=== PATIENT | female | born 1980 | race Hispanic/Latino ===

== ENCOUNTER 2024-09-12 10:26 | Outpatient (CLI) | payer OTHER ==
[2024-09-12 14:22] LABS: Hematocrit 35.7 % (34.9-44.5); Hemoglobin 11.8 g/dL (12.0-15.5); Platelet Count 255 10x3/uL (150-450)
[2024-09-12 15:04] LABS: Hep B Surf Ag Non-Reactive S/CO (NonReactive)
[2024-09-12 15:06] LABS: Syphilis Antibody Index 0.08 S/CO (<1.00 Non-Reactive)
== END 2024-09-12 10:27 | disposition home or self-care (01) ==
LOC: CSHLAB 10:26
PROVIDERS: ATTEND Family Medicine
DX: Z01.812 Encounter for preprocedural laboratory examination (principal); O34.219 Maternal care for unspecified type scar from previous cesarean delivery
CPT/HCPCS: 85014; 85018; 85049; 86780; 86850; 86900; 86901; 87340

== ENCOUNTER 2024-09-13 09:41 | Inpatient (IN) | payer MEDICAID, OTHER, SELFPAY ==
[2024-09-13] MEDS ORDERED: Carboprost 250 MCG/ML AMP IM PRN (09:57)
[2024-09-13] MEDS ORDERED: Diphenoxylate HCl/Atropine Tablet PO PRN (09:57)
[2024-09-13] MEDS ORDERED: Ondansetron PF 4 MG/2 ML Vial IVP PRN ×4 (09:57→12:42)
[2024-09-13] MEDS ORDERED: Tranexamic Acid 1,000 MG/10 ML VIAL IVP PRN (09:57)
[2024-09-13] MEDS ORDERED: Bicitra 30 ML UDCUP PO PRN (09:57)
[2024-09-13] MEDS ORDERED: Methylergonovine 0.2 MG/ML VIAL IM PRN ×2 (09:57→12:40)
[2024-09-13] MEDS ORDERED: Famotidine/PF 20 mg/2ml Vial SLOW IVP PRN (09:57)
[2024-09-13] MEDS ORDERED: hydrALAZINE 20 MG/ML VIAL SLOW IVP PRN ×2 (09:57→12:40)
[2024-09-13] MEDS ORDERED: Azithromycin 500 MG in Sodium Chloride 0.9% 250 ML 250 ML IVPB SCH (10:00)
[2024-09-13] MEDS ORDERED: Oxytocin 30 units/NS 500 ML 500 ML IV SCH (10:00)
[2024-09-13 10:16] VITALS: BMI 41.5
[2024-09-13] MEDS ORDERED: HYDROcodone/Acetaminophen 5/325 mg Tablet PO PRN (12:40)
[2024-09-13] MEDS ORDERED: Meperidine HCl/PF 25 MG (1 mL) VIAL SLOW IVP PRN (12:42)
[2024-09-13] MEDS ORDERED: diphenhydrAMINE 50 MG/ML VIAL IVP PRN (12:42)
[2024-09-13] MEDS ORDERED: Ketorolac Tromethamine 30 MG (1 mL) VIAL IVP SCH (12:45)
[2024-09-13] MEDS ORDERED: Communication Order-Pharmacy FS SCH (12:45)
[2024-09-13] MEDS: Erythromycin Base 0.5% Oint 1 GM TUBE ONE (15:23)
[2024-09-13] MEDS: Methylergonovine 0.2 MG/ML VIAL ONE (15:23)
[2024-09-13] MEDS: Oxytocin 10 UNITS/ML VIAL ONE ×2 (15:23→15:24)
[2024-09-13] MEDS: Carboprost 250 MCG/ML AMP ONE (15:23)
[2024-09-13] MEDS: Tranexamic Acid 1,000 MG/10 ML VIAL ONE (15:23)
[2024-09-13] MEDS: Ondansetron PF 4 MG/2 ML Vial ONE (15:23)
[2024-09-13] MEDS: PHENYLEPHRINE-NS 100 MCG/ML 10 ML SYRINGE ONE (15:23)
[2024-09-13] MEDS: Hepatitis B Vaccine 10 MCG/0.5 ML SYR ONE (15:23)
[2024-09-13] MEDS: Boostrix 0.5 ML (Tdap) VIAL (>/=7 yrs of age) IM ONE (15:24)
[2024-09-13] MEDS: Ketorolac Tromethamine 30 MG (1 mL) VIAL IVP PRN (22:21)
[2024-09-13] MEDS: Ferrous Sulfate 325 MG TAB PO SCH (22:22)
[2024-09-14 05:51] LABS: Hematocrit 29.9 % (34.9-44.5); Hemoglobin 10.1 g/dL (12.0-15.5); Mean Corpuscular Hemoglobin 28.3 pg (27.0-33.0); Mean Corpuscular Volume 83.8 fL (81.6-98.3); Platelet Count 193 10x3/uL (150-450); Red Blood Cell (RBC) Count 3.57 10x6/uL (3.90-5.03); White Blood Cell (WBC) Count 8.72 10x3/uL (3.5-10.5)
[2024-09-14] MEDS: HYDROcodone/Acetaminophen 5/325 mg Tablet PO PRN (11:34)
[2024-09-14] MEDS: Ibuprofen 800 MG TAB PO PRN (16:08)
[2024-09-15] MEDS ORDERED: Cyclobenzaprine 10 MG TAB PO PRN (06:19)
[2024-09-15] MEDS: Cyclobenzaprine 10 MG TAB PO SCH (09:41)
[2024-09-15] MEDS: Cyclobenzaprine 10 MG TAB PO PRN (15:27)
[2024-09-16] MEDS ORDERED: Senokot 8.6 MG TAB PO SCH (08:15)
[2024-09-16] MEDS: Simethicone Chewable 80 MG TAB PO SCH (12:20)
[2024-09-16 16:59] VITALS: BP 127/63; TEMP 98.4
== END 2024-09-16 20:55 | disposition home or self-care (01) | DRG 788 ==
LOC: CSHLD 09:41 → CSHPP 15:00
PROVIDERS: ADMIT Family Medicine; ATTEND Family Medicine
PROC: 10D00Z1 Extraction of Products of Conception, Low, Open Approach (ICD-10-PCS; principal; 2024-09-13)
DX: O34.211 Maternal care for low transverse scar from previous cesarean delivery (principal); F32.9 Major depressive disorder, single episode, unspecified; O99.344 Other mental disorders complicating childbirth; Z3A.40 40 weeks gestation of pregnancy; Z37.0 Single live birth; O24.92 Unspecified diabetes mellitus in childbirth; Z79.899 Other long term (current) drug therapy
CPT/HCPCS: 36415; 51702; 85027; J1885; J2274; J2310; J2405; J2590